=== PATIENT | female | born 1995 | race Caucasian/White ===

== ENCOUNTER 2017-09-20 05:59 | Inpatient (IN) | payer OTHER ==
--- OUTSIDE RECORDS SUMMARY | 2017-09-20 06:01 | XMS REPORT ---
:1995 Author Organization [employer] Care Team Providers Name Role Phone Jason Juarez Provider Role Unavailable Allergies No Known Allergies Problems Problem Type Condition Code Onset Dates Condition Status Problem Encounter for supervision of normal Z34.03 Active first , third trimester Problem Encounter for supervision of normal Z34.02 Active first in second trimester Problem Need for Tdap vaccination Z23 Active Assessment Encounter for supervision of normal Z34.03 Active first , third trimester Assessment Need for Tdap vaccination Z23 Active Medications No Known Medications Results No Known Results Immunizations Vaccine Administration Date TDAP > 7 Years-Adacel August 20, 2017 Summary Purpose [employer] Submission
--- OUTSIDE RECORDS SUMMARY | 2017-09-20 06:01 | XMS REPORT ---
[...] normal Z34.03 Active first , third trimester Medications No Known Medications Results No Known Results Summary Purpose [employer] Submission
--- OUTSIDE RECORDS SUMMARY | 2017-09-20 06:01 | XMS REPORT ---
[...] Problem Need for Tdap vaccination Z23 Active Medications No Known Medications Results No Known Results Summary Purpose [employer] Submission
--- OUTSIDE RECORDS SUMMARY | 2017-09-20 06:01 | XMS REPORT ---
:1995 Author Organization [employer] Care Team Providers Name Role Phone Jason Juarez Provider Role Unavailable Allergies No Known Allergies Problems Problem Type Condition Code Onset Dates Condition Status Problem Encounter for supervision of normal Z34.02 Active first in second trimester Medications No Known Medications Results No Known Results Summary Purpose [employer] Submission
--- OUTSIDE RECORDS SUMMARY | 2017-09-20 06:01 | XMS REPORT ---
:1995 Author Organization [employer] Care Team Providers Name Role Phone Jason Juarez Provider Role Unavailable Allergies No Known Allergies Problems Problem Type Condition Code Onset Dates Condition Status Assessment Encounter for supervision of normal Z34.02 Active first in second trimester Problem Encounter for supervision of normal Z34.02 Active first in second trimester Medications No Known Medications Results No Known Results Summary Purpose [employer] Submission
--- OUTSIDE RECORDS SUMMARY | 2017-09-20 06:01 | XMS REPORT ---
:1995 Author Organization [employer] Care Team Providers Name Role Phone Jason Juarez Provider Role Unavailable Allergies No Known Allergies Problems Problem Type Condition Code Onset Dates Condition Status Problem Encounter for supervision of normal Z34.02 Active first in second trimester Assessment Encounter for supervision of normal Z34.03 Active first , third trimester Problem Encounter for supervision of normal Z34.03 Active first , third trimester Medications No Known Medications Results No Known Results Summary Purpose [employer] Submission
[2017-09-20] MEDS ORDERED: CARBOPROST TROME 250 MCG/ML IM PRN (06:18)
[2017-09-20] MEDS ORDERED: Ringers Lactate 1,000 ML IV PRN (06:18)
[2017-09-20] MEDS ORDERED: METHYLERGONOVINE 0.2MG/ML AMP IM PRN (06:18)
[2017-09-20] MEDS ORDERED: OXYTOCIN/LR 20 UNIT/1,000 ML BAG IV SCH (07:00)
[2017-09-20] MEDS ORDERED: Ringers Lactate 1,000 ML IV SCH (07:00)
[2017-09-20 07:23] LABS: RPR Titer ND
[2017-09-20 07:27] LABS: Absolute Lymphocytes (CBC) 2.5 K/uL (0.7-4.9); Absolute Neutrophil 9.1 K/uL (1.8-8.0); Basophils % 0.3 % (0-1.3); Eosinophils % 0.6 % (0-4.4); Hematocrit 33.6 % (36.0-45.0); Lymphocytes % 19.5 % (15.3-44.8); MCH 27.6 pg (27.0-35.0); MCV 83.7 fL (80-100); MPV 8.5 fL (7.6-11.3); Monocytes % 7.8 % (3.3-12.3); RBC Red Blood Cell Count 4.01 M/uL (3.86-4.86)
[2017-09-20 07:33] LABS: Urine Appearance CLOUDY; Urine Bilirubin NEGATIVE (NEG); Urine Blood 1+ (NEG); Urine Color YELLOW; Urine Glucose NEGATIVE (NEG); Urine Protein NEGATIVE (NEG); Urine Urobilinogen 0.2 mg/dL (0.2-1.0)
[2017-09-20 07:35] LABS: Urine Microscopic Reflex ORDER UMIC
[2017-09-20 08:27] LABS: Urine Bacteria 20-50 /HPF (<20); Urine Culture Reflex Order REFLEXED
[2017-09-20 08:44] VITALS: BMI 32.7
[2017-09-20] MEDS ORDERED: FENTANYL/BUPIVACAINE/NS/PF 200 MCG/100 ML BAG EP PRN (08:47)
[2017-09-20] MEDS ORDERED: FENTANYL CITR 100 MCG/2 ML IV ONE (08:47)
[2017-09-20] MEDS ORDERED: BUPIVACAINE 0.25% PF 30 ML VIAL SQ ONE (09:33)
[2017-09-20] MEDS ORDERED: BUPIVACAINE 0.25% PF 10 ML VIAL IV PRN (12:20)
[2017-09-20] MEDS ORDERED: ROPIVACAINE HCL 0 ML ONE (12:36)
[2017-09-20] MEDS ORDERED: BUPIVACAINE 0.25% PF 30 ML VIAL ONE (12:41)
[2017-09-20] MEDS ORDERED: CARBOPROST TROME 250 MCG/ML IM ONE (19:07)
[2017-09-20] MEDS ORDERED: METHYLERGONOVINE 0.2MG/ML AMP IM ONE (19:07)
[2017-09-20] MEDS ORDERED: LIDOCAINE 2% INJ, 20 mL 20 ML ONE (19:07)
[2017-09-20] MEDS ORDERED: FENTANYL/BUPIVACAINE/NS/PF 200 MCG/100 ML BAG EP ONE (22:00)
[2017-09-20] MEDS ORDERED: ACETAMINOPHEN 500 MG TAB PO PRN (22:54)
[2017-09-20] MEDS ORDERED: BISACODYL 10 MG RECTAL SUPP RECT PRN (22:54)
[2017-09-20] MEDS ORDERED: Oxycodone HCl/Acetaminophen 1 TAB TAB PO PRN (22:54)
[2017-09-20] MEDS ORDERED: METHYLERGONOVINE 0.2 MG TAB PO PRN (22:54)
[2017-09-20] MEDS ORDERED: ONDANSETRON 4 MG (ODT) TAB PO PRN (22:54)
[2017-09-20] MEDS ORDERED: DOCUSATE NA/SENNA CONC 1 TAB PO PRN (22:54)
--- NOTE | 2017-09-20 22:58 | P.OP ---
Date of Service: 09/20/17 Findings and Operative Technique Patient delibered a viable male in cephalic presentation on 09/20/17 at 22 :05. was delivered over a midline episiotomy and was found to have nuchal cord x1 which was manually reduced. Nose and mouth were suctioned with a suction bulb. Cord was clamped and cut and was placed on the mother's abdomen for skin to skin bonding. Attention was then turned to the placenta which was delivered with gentle traction. Placenta was noted to be intact. Episiotomy was then examined and noted to be a 3rd degree laceration. This was repaired with 3.0 and 2.0 vicryl in a usual fashion. Patient tolerated well. EBL was noted to be 300 cc. Weight was found to be 7 lb 15 oz. APGARS were 9/9. First stage of labor was 11 hours and 51 min. Second stage was 1 hour and 10 min.
--- NOTE | 2017-09-20 22:58 | P.OBGYNHP ---
Certification for Inpatient Patient admitted to: Inpatient With expected LOS: <2 Midnights Patient will require the following post-hospital care: None Practitioner: I am a practitioner with admitting privileges, knowledge of patient current condition, hospital course, and medical plan of care. Services: Services provided to patient in accordance with Admission requirements found in Title 42 Section 412.3 of the Code of Federal Regulations Patient History Date of Service: 10/10/17 Reason for admission: INDUCTION OF LABOR History of Present Illness: Patient is a 22 y/o at 39 weeks and 6 days gestation who presents for elective induction of labor. Patient has been doing well. She denies vaginal bleeding. She reports good movements. She has been having irregular contractions. She has obtained care with [facility] beginning at 11 weeks gestation. She has not had any issues. Aneuploidy testing was low risk. Glucose screen negative. See record for further details. Allergies No Known Allergies Allergy (Unverified 09/13/17 10:47) Home Medications: Codeine/APAP [Tylenol W/Codeine #3 tab] 1 tab PO Q6HP PRN #20 tab 09/22/17 - Past Medical/Surgical History Diabetic: No Past Medical History: Reviewed- Non-Contributory - Social History Smoking Status: Never smoker Alcohol use: No CD- Drugs: No Caffeine use: Yes Place of Residence: Home Review of Systems 10-point ROS is otherwise unremarkable Physical Examination - Vital Signs Temperature: 97.5 F Blood Pressure: 123/79 Pulse: 100 Respirations: 16 - General General: Alert, Oriented x3, Mild distress HEENT: Atraumatic Neck: Supple Respiratory: Normal air movement Cardiovascular: No edema, Normal pulses Breasts: Normal configuration, Normal contours Gastrointestinal: No ascites, No tenderness, No massess, No rebound, No guarding , Other (GRAVID) Musculoskeletal: No clubbing, No swelling Integumentary: No rashes, No breakdown Neurological: Normal gait, Normal speech - Female Pelvic External genitalia: Normal Vagina: Normal Cervix: Dilation (2), Effacement (50%), station (-2) Uterus: Gravid, Firm Adnexa: Unable to evaluate - Obstetrics heart rate tracing: Category 2 Amniotic membrane: AROM Laboratory Data (last 24 hrs) 09/20/17 06:45: WBC 12.7 H, Hgb 11.1 L, Hct 33.6 L, Plt Count 280 Assessment and Plan - Plan 22 y/o at 39 weeks and 6 days gestation who presents for elective induction of labor. Rupture of membranes performed. GBS negative. Pitocin started for labor augmentation. Pain management at patient's request. Anticipate vaginal . Discharge Plan: Home Plan to discharge in: 48 Hours - Advance Directives Does patient have a Living Will: No Does patient have a Durable POA for Healthcare: No
[2017-09-20 23:03] LABS: Absolute Lymphocytes (CBC) 1.1 K/uL (0.7-4.9); Absolute Monocytes 1.3 K/uL (0.1-1.3); Absolute Neutrophil 14.4 K/uL (1.8-8.0); Basophils % 0.2 % (0-1.3); Hematocrit 31.6 % (36.0-45.0); Lymphocytes % 6.6 % (15.3-44.8); MCH 27.5 pg (27.0-35.0); MCV 83.7 fL (80-100); MPV 8.4 fL (7.6-11.3); Monocytes % 7.6 % (3.3-12.3); RBC Red Blood Cell Count 3.78 M/uL (3.86-4.86)
[2017-09-20 23:25] LABS: Blood Morphology Comment NOT SEEN (NOT SEEN); Platelet Estimate ADEQ
[2017-09-20 23:38] LABS: RPR (Rapid Plasma Reagin) NON-REACT (NON-REACT)
[2017-09-21] MEDS: Oxycodone HCl/Acetaminophen 1 TAB TAB PO PRN ×3 (00:57→22:15)
[2017-09-21 06:20] LABS: Absolute Lymphocytes (CBC) 1.8 K/uL (0.7-4.9); Absolute Monocytes 1.4 K/uL (0.1-1.3); Basophils % 0.2 % (0-1.3); Eosinophils % 0.1 % (0-4.4); Hematocrit 30.8 % (36.0-45.0); Lymphocytes % 10.5 % (15.3-44.8); MCH 28.2 pg (27.0-35.0); MCV 83.2 fL (80-100); MPV 8.3 fL (7.6-11.3); Monocytes % 8.1 % (3.3-12.3)
[2017-09-21] MEDS: IBUPROFEN 200 MG TAB PO PRN ×2 (11:27→17:55)
[2017-09-22] MEDS ORDERED: PENICILLIN G POT 0 MU/0 ML BAG IV ONE (01:32)
[2017-09-22] MEDS: Oxycodone HCl/Acetaminophen 1 TAB TAB PO PRN (08:40)
[2017-09-22] MEDS: IBUPROFEN 200 MG TAB PO PRN (08:40)
[2017-09-22 19:07] LABS: HBsAG Nonreactive (Nonreactive)
--- NOTE | 2017-09-22 23:10 | P.DS ---
Admission Date: 09/20/17 Discharge Date: 09/22/17 Disposition: ROUTINE DISCHARGE Discharge Condition: GOOD Reason for Admission: INDUCTION OF LABOR Brief History of Present Illness: Patient is a 22 y/o at 39 weeks and 6 days gestation who presents for elective induction of labor. Patient has been doing well. She denies vaginal bleeding. She reports good movements. She has been having irregular contractions. She has obtained care with [facility] beginning at 11 weeks gestation. She has not had any issues. Aneuploidy testing was low risk. Glucose screen negative. See record for further detail. See H&P Hospital Course: Patient did well postop. Her pain is well controlled. She is ambulating well. She is voiding well. Vital Signs/Physical Exam: Temp Pulse Resp BP Pulse Ox 97.7 F 111 H 16 128/80 09/22/17 08:00 09/22/17 08:00 09/22/17 08:00 09/22/17 08:00 General: Alert, In no apparent distress HEENT: Atraumatic Neck: Supple Respiratory: Normal air movement Cardiovascular: No edema, Normal pulses Gastrointestinal: Soft and benign (fundus firm ) Musculoskeletal: No clubbing, No swelling Integumentary: No rashes Neurological: Normal gait, Normal speech Laboratory Data at Discharge: WBC 17.3 K/uL (4.3-10.9) H 09/21/17 06:02 Hgb 10.4 g/dL (12.0-15.0) L 09/21/17 06:02 Hct 30.8 % (36.0-45.0) L 09/21/17 06:02 Plt Count 270 K/uL (152-406) 09/21/17 06:02 Home Medications: Codeine/APAP [Tylenol W/Codeine #3 tab] 1 tab PO Q6HP PRN #20 tab 09/22/17 New Medications: Codeine/APAP [Tylenol W/Codeine #3 tab] 1 tab PO Q6HP PRN #20 tab PRN Reason: Pain Diet: Regular Activity: No lifting more than 10 lbs
[2017-10-10 21:28] VITALS: BP 123/79; TEMP 97.5
== END 2017-09-22 10:00 | disposition home or self-care (01) | DRG 775 ==
LOC: 2ND-WC 05:59
PROVIDERS: ADMIT Student in an Organized Health Care Education/Training Program; ATTEND Student in an Organized Health Care Education/Training Program
PROC: 10907ZC Drainage of Amniotic Fluid, Therapeutic from Products of Conception, Via Natural or Artificial Opening (ICD-10-PCS; principal; 2017-09-20)
PROC: 10E0XZZ Delivery of Products of Conception, External Approach (ICD-10-PCS; 2017-09-20)
PROC: 0W8NXZZ Division of Female Perineum, External Approach (ICD-10-PCS; 2017-09-20)
DX: O69.81X0 Labor and delivery complicated by cord around neck, without compression, not applicable or unspecified (principal); Z3A.39 39 weeks gestation of pregnancy; Z37.0 Single live birth
CPT/HCPCS: 36415; 81003; 81015; 85025; 86592; 86901; 87086; 87088; 87340; 88307; J2210; J2590; J3010